=== PATIENT | male | born 1970 | race Caucasian/White ===

== ENCOUNTER → 2024-11-10 11:21 | Outpatient (BNVA) | payer SELFPAY | PROVIDERS: Visit Provider Registered Nurse Neonatal Intensive Care | DX: R42 Dizziness and giddiness (principal) | CPT/HCPCS: 81000 ==

== ENCOUNTER → 2024-11-23 11:05 | Outpatient (BNVA) | payer SELFPAY | PROVIDERS: Visit Provider Registered Nurse Neonatal Intensive Care | DX: J02.9 Acute pharyngitis, unspecified (principal) | CPT/HCPCS: 87071; 87880 ==